=== PATIENT | male | born 1975 | race Caucasian/White ===

== ENCOUNTER 2023-02-06 16:51 | Emergency (ER) | payer MEDICARE, OTHER, SELFPAY ==
[2023-02-06 17:00] VITALS: BP 140/83; PULSE 86; RESP 20; TEMP 36.4; O2SAT 98; BMI 19.0
--- NOTE | 2023-02-06 17:15 | ED_ITS ---
HPI - General Adult General Chief complaint: Psychiatric Symptoms Stated complaint: ALTERED MENTAL STATUS Time Seen by Provider: 02/06/23 17:12 Mode of arrival: walk-in History of Present Illness HPI narrative: Patient is a 48-year-old male who is presenting to the ER with multiple concerns. Patient is having suicidal ideation that he wants to cut himself and kill himself. Patient has attempted this multiple times in the past. Patient has a thought of cutting himself today to hurt himself, patient has a multitude of significant scars to bilateral forearms. Patient is also hearing voices. Patient is hearing voices of people that are trying to hurt him or beat him up. Patient has a history of meth and alcohol and marijuana addiction. Patient was in [place] for 1 month a rehab facility. Patient for 1 week has been in a sobriety house in the [facility]. Patient is from the [facility] as well. Patient was not happy at the sobriety house, patient was being told that he is hearing voices and patient does not believe he is so he came to [facility] for evaluation. Patient says that he paid 200 hours for a cab ride to come to this hospital for mental health evaluation. Patient also drink alcohol today, patient says that he drank 2 tall 24 ounce beers. The last time patient drink alcohol was December 15 when he went to rehab. Patient denies any opiate, cocaine, or benzo use. Patient has no headache or neck pain. No chest pain or shortness of breath. Patient does smell of alcohol. Patient is pleasant to talk to. Patient has a history of schizoaffective disorder. Patient is noncompliant with his medication. All systems are negative except as noted/marked. All systems reviewed and otherwise negative. Nurses note and vital signs reviewed and patient is not hypoxic. General: The patient appears well and in no apparent distress. Patient is resting comfortably on cart. Patient is not toxic, lethargic, or listless. Patient smells of alcohol. Poor hygiene. Skin: Warm, dry, no pallor noted. There is no rash noted. No petechiae, purpura. Patient has multiple significant scars to bilateral forearms from previous cutting. Patient has not cut, there is no abrasions, lacerations, or signs of self trauma at this time. Head: Normocephalic, atraumatic Eye: Normal conjunctiva, no drainage, EOMI. PERRL. Pupils are 3/2, equal, bilateral. Ears, Nose, Mouth, and Throat: oral mucosa is moist. Patient patient has no teeth. No other intraoral pathology. Nares patent. Mouth without vesicles. Cardiovascular: Regular Rate and Rhythm, no murmur, gallop, rub. Respiratory: Patient is in no distress, no accessory muscle use, lungs are clear to auscultation, no wheezing, rales or rhonchi Back: non-tender, no CVA tenderness bilaterally to percussion. No CT LS midline pain GI: no tenderness to palpation, no masses appreciated. No rebound, guarding, or rigidity noted. No distention Musculoskeletal: Patient has full range of motion of all of the extremities, no motor, sensory, or focal neurological deficits Neurological: A&O x4, normal speech, patient is suicidal, he is not homicidal. Patient is very firm that he is hearing these voices of people that want to beat him up and hurt him. Patient however does not believe that he is delusional. Psychiatric: Cooperative Related Data Home Medications Medication Instructions Recorded Confirmed fluoxetine 10 mg capsule 10 mg PO DAILY 02/06/23 02/06/23 paliperidone 6 mg tablet,extended 6 mg PO DAILY 02/06/23 02/06/23 release 24 hr paliperidone palmitate 156 mg/mL 156 mg IM Q30D 02/06/23 02/06/23 intramuscular syringe (Invega Sustenna) prazosin 1 mg capsule 1 mg PO DAILY 02/06/23 02/06/23 quetiapine 300 mg tablet 300 mg PO DAILY 02/06/23 02/06/23 quetiapine 50 mg tablet 50 mg PO DAILY 02/06/23 02/06/23 quetiapine 50 mg tablet,extended 50 mg PO BID 02/06/23 02/06/23 release 24 hr Allergies Allergy/AdvReac Type Severity Reaction Status Date / Time No Known Drug Allergies Allergy Verified 02/06/23 17:05 Exam Constitutional Vital Signs, click to edit/add: Last Vital Signs Temp 97.5 F L 02/06/23 17:00 Pulse 86 02/06/23 17:00 Resp 20 02/06/23 17:00 BP 140/83 02/06/23 17:00 Pulse Ox 98 02/06/23 17:00 O2 Del Method Room Air 02/06/23 17:00 Course Vital Signs Vital signs: Vital Signs Temperature 97.5 F L 02/06/23 17:00 Pulse Rate 86 02/06/23 17:00 Respiratory Rate 20 02/06/23 17:00 Blood Pressure 140/83 02/06/23 17:00 Pulse Oximetry 98 02/06/23 17:00 Oxygen Delivery Method Room Air 02/06/23 17:00 Temperature 97.5 F L 02/06/23 17:00 Pulse Rate 86 02/06/23 17:00 Respiratory Rate 20 02/06/23 17:00 Blood Pressure 140/83 02/06/23 17:00 Pulse Oximetry 98 02/06/23 17:00 Oxygen Delivery Method Room Air 02/06/23 17:00 Medical Decision Making MDM Narrative Medical decision making narrative: Patient is medically clear. Patient's alcohol is 98. Patient has spoken to [facility] once already. Patient has suicidal ideation of cutting himself. Patient also is hearing voices. Patient would benefit of admission most likely. We are currently waiting for placement information. 1900 patient is medically clear. Patient will be transition to Dr. Bennett at 1900. We are waiting for placement of this patient and accepting hospital. Critical care time 31 minutes exclusive from separate billable procedures that were performed. The following was considered in the determination of critical care but not limited to the level of medical decision making, intensive cardiac and/or respiratory monitoring, frequent vital sign monitoring, evaluation of laboratory studies, evaluation of radiographic studies, oxygen monitoring, and constant monitoring and speaking to family at bedside Lab Data Labs: Lab Results 02/06/23 02/06/23 Range/Units 17:22 17:53 WBC 5.4 (4.0-11.0) 10^3/uL RBC 4.32 L (4.70-6.10) 10^6/uL Hgb 13.6 L (14.0-18.0) g/dL Hct 41.6 L (42.0-54.0) % MCV 96.3 H (80.0-94.0) fL MCH 31.5 (25.9-34.0) pg MCHC 32.7 (29.9-35.2) g/dL RDW 14.1 (11.0-15.0) % Plt Count 279 (150-450) 10^3/uL MPV 9.8 (9.5-13.5) fL Neut % (Auto) 64.6 (43.0-75.0) % Lymph % (Auto) 25.0 (20.5-60.0) % Green % (Auto) 7.6 (1.7-12.0) % Eos % (Auto) 0.6 L (0.9-7.0) % Baso % (Auto) 2.0 (0.2-2.0) % Neut # (Auto) 3.5 (1.4-6.5) 10^3/uL Lymph # (Auto) 1.4 (1.2-3.8) 10^3/uL Green # (Auto) 0.4 (0.3-0.8) 10^3/uL Eos # (Auto) 0.0 (0.0-0.7) 10^3/uL Baso # (Auto) 0.1 (0.0-0.1) 10^3/uL Abs Immat Gran (auto) 0.01 (0.00-0.03) 10^3/uL Imm/Tot Granulo (auto) 0.2 (0.0-0.5) % Sodium 135 L (136-145) mmol/L Potassium 3.9 (3.5-5.1) mmol/L Chloride 99 (98-107) mmol/L Carbon Dioxide 28.3 (21.0-32.0) mmol/L Anion Gap 11.6 BUN 12.0 (7.0-18.0) mg/dL Creatinine 1.05 (0.70-1.30) mg/dL Est GFR ( Amer) >60 (>=60) Est GFR (Non-Af Amer) >60 (>=60) BUN/Creatinine Ratio 11.4 Glucose 100 (74-106) mg/dL Calcium 9.1 (8.5-10.1) mg/dL Magnesium 2.0 (1.8-2.4) mg/dL Total Bilirubin 0.4 (0.2-1.0) mg/dL AST 16 (15-37) U/L ALT 14 L (16-63) U/L Alkaline Phosphatase 81 (46-116) U/L Total Protein 7.6 (6.4-8.2) g/dL Albumin 3.8 (3.4-5.0) g/dL Globulin 3.8 g/dL Albumin/Globulin Ratio 1.0 Urine Color Lt. yellow (YELLOW) Urine Clarity Clear (CLEAR) Urine pH 6.5 (5.0-9.0) Ur Specific [place] <=1.005 A (1.005-1.025) Urine Protein Negative (NEG/TRACE) mg/dL Urine Glucose (UA) Negative (NEGATIVE) mg/dL Urine Ketones Negative (NEGATIVE) mg/dL Urine Occult Blood Trace-i (NEGATIVE) Urine Nitrite Negative (NEGATIVE) Urine Bilirubin Negative (NEGATIVE) Urine Urobilinogen 0.2 (0.2-1.0) EU/dL Ur Leukocyte Esterase Negative (NEGATIVE) Urine RBC None seen (0-2) #/HPF Urine WBC None seen (NONE SEEN) #/HPF Ur Squamous Epith Cells None seen (NONE/RARE) #/LPF Urine Crystals None seen (None Seen) #/HPF Urine Bacteria None seen (NONE SEEN) #/HPF Urine Casts None seen (NONE SEEN) #/LPF Urine Mucus None seen (NONE SEEN) Ur Culture Indicated? No Salicylates 6.7 (<=19.9) mg/dL Urine Opiates Screen Negative (NEGATIVE) Ur Buprenorphine Scrn Negative (NEGATIVE) Ur Oxycodone Screen Negative (NEGATIVE) Urine Methadone Screen Negative (NEGATIVE) Acetaminophen <2.0 L (10.0-30.0) ug/mL Ur Barbiturates Screen Negative (NEGATIVE) U Tricyclic Antidepress Positive A (NEGATIVE) Ur Phencyclidine Scrn Negative (NEGATIVE) Ur Amphetamines Screen Negative (NEGATIVE) U Methamphetamines Scrn Negative (NEGATIVE) U Benzodiazepines Scrn Negative (NEGATIVE) Urine Cocaine Screen Negative (NEGATIVE) U Cannabinoids Screen Negative (NEGATIVE) Ethanol Quant 98 mg/dL ECG Data Attestation: I personally reviewed and interpreted this ECG as follows: (EKG interpretation. Normal sinus rhythm at 81 beats a minute. Normal axis deviation. No acute ST elevation, no acute ectopy. QTc of 411) Discharge Plan Discharge Patient Disposition: Still a Patient
[2023-02-06 17:28] LABS: Basophils Absolute Auto 0.1 10^3/uL (0.0-0.1); Eosinophils Percent Auto 0.6 % (0.9-7.0); Hematocrit 41.6 % (42.0-54.0); Hemoglobin 13.6 g/dL (14.0-18.0); Immature Granulocytes Abs Auto 0.01 10^3/uL (0.00-0.03); Immature Granulocytes Pct Auto 0.2 % (0.0-0.5); Lymphocytes Absolute Auto 1.4 10^3/uL (1.2-3.8); Mean Corpuscular HGB Conc 32.7 g/dL (29.9-35.2); Mean Corpuscular Hemoglobin 31.5 pg (25.9-34.0); Mean Corpuscular Volume 96.3 fL (80.0-94.0); Mean Platelet Volume 9.8 fL (9.5-13.5); Monocytes Absolute Auto 0.4 10^3/uL (0.3-0.8); Monocytes Percent Auto 7.6 % (1.7-12.0); Neutrophils Absolute Auto 3.5 10^3/uL (1.4-6.5); Neutrophils Percent Auto 64.6 % (43.0-75.0); Platelet Count 279 10^3/uL (150-450); Red Blood Count 4.32 10^6/uL (4.70-6.10); Red Cell Distribution Width 14.1 % (11.0-15.0); White Blood Count 5.4 10^3/uL (4.0-11.0)
[2023-02-06 17:42] LABS: Alanine Aminotransferase 14 U/L (16-63); Albumin Level 3.8 g/dL (3.4-5.0); Alkaline Phosphatase 81 U/L (46-116); Anion Gap 11.6; Aspartate Amino Transferase 16 U/L (15-37); BUN Creatinine Ratio 11.4; Bilirubin Total 0.4 mg/dL (0.2-1.0); Calcium 9.1 mg/dL (8.5-10.1); Carbon Dioxide 28.3 mmol/L (21.0-32.0); Chloride 99 mmol/L (98-107); Estimated GFR (African America >60 (>=60); Estimated GFR (Non-African Ame >60 (>=60); Ethanol 98 mg/dL; Globulin 3.8 g/dL; Glucose 100 mg/dL (74-106); Potassium 3.9 mmol/L (3.5-5.1); Salicylate 6.7 mg/dL (<=19.9); Sodium 135 mmol/L (136-145); Total Protein 7.6 g/dL (6.4-8.2)
[2023-02-06 17:43] LABS: Acetaminophen <2.0 ug/mL (10.0-30.0)
--- NOTE | 2023-02-06 18:04 | ECG_ITS ---
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
[2023-02-06 18:12] LABS: Bilirubin Urine NEGATIVE (NEGATIVE); Blood Urine TRACE-I (NEGATIVE); Clarity Urine CLEAR (CLEAR); Color Urine LT. YELLOW (YELLOW); Glucose Urine UA NEGATIVE (NEGATIVE); Ketones Urine NEGATIVE (NEGATIVE); Leukocyte Esterase Urine NEGATIVE (NEGATIVE); Nitrite Urine NEGATIVE (NEGATIVE); Protein Urine NEGATIVE (NEG/TRACE); Specific Gravity Urine <=1.005 (1.005-1.025); Urobilinogen Urine 0.2 EU/dL (0.2-1.0); pH Urine 6.5 (5.0-9.0)
[2023-02-06 18:17] LABS: Urine Microscopic Indicated YES
[2023-02-06 18:20] LABS: Bacteria Urine NONE SEEN #/HPF (NONE SEEN); Cast Seen? NONE SEEN #/LPF (NONE SEEN); Crystals Seen? None Seen #/HPF (None Seen); Mucus Urine NONE SEEN (NONE SEEN); RBC Urine NONE SEEN #/HPF (0-2); Squamous Epithelial Cell Urine NONE SEEN #/LPF (NONE/RARE); Urine Culture Indicated NO; WBC Urine NONE SEEN #/HPF (NONE SEEN)
[2023-02-06 18:21] LABS: Amphetamine Screen Urine NEGATIVE (NEGATIVE); Barbiturates Screen Urine NEGATIVE (NEGATIVE); Benzodiazepines Screen Urine NEGATIVE (NEGATIVE); Buprenorphine Screen Urine NEGATIVE (NEGATIVE); Cannabinoid Screen Urine NEGATIVE (NEGATIVE); Cocaine Screen Urine NEGATIVE (NEGATIVE); Methadone Screen Urine NEGATIVE (NEGATIVE); Methamphetamines Screen Urine NEGATIVE (NEGATIVE); Opiate Screen Urine NEGATIVE (NEGATIVE); Oxycodone Screen Urine NEGATIVE (NEGATIVE); Phencyclidine Screen Urine NEGATIVE (NEGATIVE); Tricyclic Antidepressant Urine POSITIVE (NEGATIVE)
[2023-02-06 20:36] VITALS: BP 106/53; PULSE 99; O2SAT 96
== END 2023-02-06 22:21 | disposition home or self-care (01) ==
PROVIDERS: Emergency Medicine; Emergency Provider Internal Medicine
DX: F25.9 Schizoaffective disorder, unspecified (principal); F22 Delusional disorders; R45.851 Suicidal ideations; Z91.51 Personal history of suicidal behavior; Z91.148 Patient's other noncompliance with medication regimen for other reason; F11.21 Opioid dependence, in remission
CPT/HCPCS: 36415; 80053; 80179; 80307; 80320; 80329; 81001; 83735; 85025; 93005; 99285